=== PATIENT | male | born 1985 | race Caucasian/White ===

== ENCOUNTER 2021-11-19 14:18 | Emergency (ER) | payer MEDICAID, SELFPAY ==
[2021-11-19 14:19] VITALS: BP 133/102; PULSE 109; RESP 14; TEMP 36.4; O2SAT 97; BMI 37.8
--- NOTE | 2021-11-19 14:56 | EX.ED.DYSGE1 ---
HPI History of Present Illness Chief Complaint: Abscess Informant: patient Narrative Narrative: Patient states he has history of not uncommonly getting abscesses above his right-sided central incisor. He states it came in differently than all the others and always gives him problems. He has had 3 4 days of pressure. He can feel that he has an abscess moving up toward his nose. Normally he drains these himself with a needle under his lip. But he states he just cannot see this 1 to drain. He has no chest pain. No fevers chills. No headache. No nausea vomiting. He has no allergy to antibiotics. Nothing makes the symptoms better or worse other than chewing. No other complaints. He swallows normally. PFSH PFSH Home Medications penicillin V potassium 500 mg tablet 500 mg PO 4X/DAY #40 tabs 11/19/21 [Rx Last Taken Unknown] Allergy/AdvReac Type Severity Reaction Status Date / Time bee venom protein (honey bee) Allergy Anaphylaxis Verified 11/19/21 14:21 shellfish derived Allergy Vomiting Verified 11/19/21 14:21 Social History Smoking Status: Never smoker ROS ROS ED Constitutional Constitutional ED: Denies chills or fever(s) Eyes Eyes: Denies change in vision ENT ENT ED: Reports other Details: See history of present illness peer ; Denies sore throat Cardiovascular Cardiovascular: Denies chest pain Respiratory/Chest Respiratory/Chest: Denies cough or dyspnea Gastrointestinal Gastrointestinal: Denies nausea or vomiting Musculoskeletal Musculoskeletal: Denies neck pain Integumentary Reports abscess and other Details: Abscess above tooth. No others. EXAM Physical Exam Const Vital Signs: 11/19/21 14:19 Temperature 97.6 F L Temperature Source Temporal Pulse Rate 109 H Respiratory Rate 14 Blood Pressure 133/102 H Blood Pressure Mean 112 Pulse Ox 97 Oxygen Delivery Method Room Air Positive well nourished and well developed General Appearance ED: well developed and NAD HEENT Reports moist mucous membranes HEENT Narrative: Base of the patient's nose looks erythematous but I do not see any abscess extending up into the nostril. There is a little fullness of the lip on the right side. Tooth is tender as described in history of present illness. There is also some fullness in the gum above this that looks like an abscess that is pointing. It is slightly fluctuant. Voice is normal. Eyes EOMs intact bilaterally Eyes Narrative: No sinus tenderness. Neck no lymphadenopathy, supple and no JVD Neck Narrative: No stridor. Resp normal respiratory effort Skin no rashes or lesions noted MDM MDM MDM Narrative Medical decision making narrative: Incision and drainage was done. Patient tolerated well. Mild bleeding. Antibiotics will be started. Reasons to return discussed. Procedures Other Procedures Procedure(s): Incision and drainage of dental abscess. We discussed risks benefits and options. Patient would prefer this drain. I used 2 sprays of Cetacaine to numb the area. An 18-gauge needle was used to incise the area. We initially got blood and a tiny amount of purulence. We numbed up a little bit more and widen the incision and got good drainage of purulent material. We were able to milk some more from above and the lip. Patient felt good relief of pressure. We will start him on antibiotics at this time. Discharge Plan Triage Chief Complaint: Abscess ED Provider: Gene Pelayo Dx/Rx/DC Orders Clinical Impression: Abscess, dental, Encounter for incision and drainage procedure Instructions: Dental Abscess, ED Abscess Incision And Drainage Prescriptions: New penicillin V potassium 500 mg tablet 500 mg PO 4X/DAY Qty: 40 0RF Primary Care Provider: Geronimo Silverman III Activity Restrictions/Additional Instructions: Your blood pressure is a little bit elevated today. Please follow-up with primary physician for recheck. Dental resource list is also attached. Please follow-up with dentist in the next week to 10 days. Disposition Disposition: Home, Self Care
[2021-11-19] MEDS: Penicillin Vk 250 MG Tablet 500 MG PO (15:10)
== END 2021-11-19 15:14 | disposition home or self-care (01) ==
PROVIDERS: Emergency Provider Emergency Medicine; PCP Family Medicine; Visit Provider Emergency Medicine
DX: K04.7 Periapical abscess without sinus (principal)
CPT/HCPCS: 41800; 99282

== ENCOUNTER 2022-09-10 10:00 | Outpatient (RCR) | payer MEDICAID, SELFPAY ==
--- NOTE | 2022-08-02 16:59 | HP.PTEVAL_ITS ---
Patient's Visit Information GABBY VIVAR is a 36 year old M referred to Physical Therapy by Dr. Ranjit Trevizo DO with a diagnosis of Cervical and Right Shoulder Pain. Date of Evaluation: 08/02/22 Physical Therapist: Clau Da Silva DPT - Visit Plan Frequency: 2x /Week Duration: 4 Weeks Plan: Ultrasound, Manual STM and occipital release, ROM of cervical and UE, scapular strength/stabilization- decrease dural s/s. Posture, scapular retractions, supine chin tucks, wall wash flexion - Subjective Patient reports that he woke up Jun 01 and his right ring finger was numb and tingling- that has not gotten any better. He went to see MD who reports he has a curve in the cervical spine that goes the wrong way- he also has something else but can't remember. They put him on Meloxicam that is helping a little bit but he still has the N/T. The pain radiates from the base of his skull to the top of the shoulder and down the arm. He reports that pain isnt bad down the arm but the N/T is constant. Worst: 10 describes it as dull and achy. Best: 10. He has a hard time getting comfortable. Sleep: painful and he also has knee pain that wakes him up. PMHx/Meds: see list from Dr. Reyes. - Objective Posture: FH, RS- mild guarding of the right UE. Gait: slow juan- poor trunk rotation and arm swing Palpation: tender occiput down the UT to the AC joint. ROM: Cervical: pain with movement in all directions- WFL with the exception of right rotation diminished by 50%. Elbow/Wrist/Hand: WFL, Shoulder: AROM: Flexion: 160 degrees Abd: 160 degrees, IR: to belt, ER: 50 degrees. Strength: Elbow: Extn: 11 Flexion: 11.8 with pain, Shoulder: Flexion: 11.4 Extn: 11 Abd:12 Add: 16 IR: 20.5 ER: 12.8Grip: 80lbs- all with significant pain with testing - Special Tests C/S Radiculapathy - Left Spurlings: Positive C/S Radiculapathy - Right Spurlings: Positive C/S Radiculapathy - Left Cervical distraction: Positive C/S Radiculapathy - Right Cervical distraction: Positive R Shoulder Drop Sign - IS Test: Positive R Shoulder Empty Can - SS: Positive R Shoulder Belly Press - SupScap: Positive R Shoulder Neer - Impingement: Positive R Shoulder Ackerman Franky - Impingement: Positive - Balance/Special Test Scores Oswestry Neck Score: 31 - Goals Goal 1:: Patient will be I with HEP and progression Goal Time Frame: 4-6 Weeks Goal 2:: Patient will maintain proper posture t/o tx session to demo increased scap s/s Goal Time Frame: 4-6 Weeks Goal 3:: Patient will report no N/T in the UE for 1 week Goal Time Frame: 4-6 Weeks Goal 4:: Patient will report 80% improvement Goal Time Frame: 4-6 Weeks - Rehabilitation Potential Physical Therapy Diagnosis: Patient presents with hypomobility- he has decreased UE and cervical ROM, scapular strength/stabilization and muscular endurance leading to poor posture and increased pain with ADL's. - Anticipated Interventions Patient/Client Instruction: Educate patient on: Benefits of Fitness Program Therapeutic Exercise to Include: Strength training, Endurance training, Balance training, Coordination, Agility training, Body mechanics, Postural training, Flexibilty training, Gait and locomotor training, Neuromotor development, Dynamic Lumbar Stabilization, Scapular Strength/Stabilization For the Purpose of:: To improve muscle performance and motor function TENS: Yes Cryotherapy (ice pack, ice massage): Yes Thermo therapy (hot pack): Yes Ultrasound (thermal/non thermal): Yes Thank you for the opportunity to evaluate your patient. For Medicare and Medicare HMO plans, please review the plan of care and approve it. It will need to be FAXED BACK to us at [phone] for Medicare purposes. For Medicare only, by signing this I certify the plan of care. Please let me know if there are questions or concerns regarding this plan of care. Physician Signature: _Date:
--- NOTE | 2022-09-10 10:48 | HP.PTDCSUM ---
It has been my pleasure to treat GABBY VIVAR referred by Dr. Ranjit Trevizo DO, with the diagnosis of Cervical and Right Shoulder Pain for a total of 9 visit(s). Discharge Date: Please see the following information for a summary of their discharge status. Subjective: Patient reports that the shoulder pain has subsided to about a 3/10 which is better but the neck pain is still significant. He has a PCP MD (Kristy Kendrick) apt on the and will talk to them about an MRI to figure exactly what is going on with the tissue. He does feel that PT has helped. He feels that he can continue doing the exercises at home. Neck Pain Intensity (Out of 10): 5 right shoudler/UE Pain Intensity (Out of 10): 3 % Improvement: 40 Objective/Function: Posture: FH, RS- mild guarding of the right UE. Gait: slow juan- poor trunk rotation and arm swing Palpation: tender occiput down the UT to the AC joint. ROM: Cervical: pain with movement in all directions- WFL Elbow/Wrist/Hand: WFL, Shoulder: AROM: Flexion: 180 degrees Abd: 160 degrees, IR: to mid back, ER: 50 degrees. Strength: Elbow: Extn: 14 Flexion: 13.8 with pain, Shoulder: Flexion: 18.4 Extn: 12.2 Abd:10 Add: 10 IR: 10 ER: 12.8 Senior Policy Analyst: 80lbs- all with significant pain with testing. - Special Tests. C/S Radiculapathy - Left Spurlings: Positive. C/S Radiculapathy - Right Spurlings: Positive. C/S Radiculapathy - Left Cervical distraction: Positive. C/S Radiculapathy - Right Cervical distraction: Positive. R Shoulder Drop Sign - IS Test: Positive. R Shoulder Empty Can - SS: Positive. R Shoulder Belly Press - SupScap: Positive. R Shoulder Neer - Impingement: Positive. R Shoulder Ackerman Franky - Impingement: Positive Goal 1:: Patient will be I with HEP and progression Goal 2:: Patient will maintain proper posture t/o tx session to demo increased scap s/s Goal 3:: Patient will report no N/T in the UE for 1 week Goal 4:: Patient will report 80% improvement Plan: 09/10/22: Discharge- return to MD for further evaluation- reports he can perform HEP Indep with print out and bands. Ultrasound, Manual STM and occipital release, ROM of cervical and UE, scapular strength/stabilization- decrease dural s/s. If there are questions or concerns regarding this patient's physical therapy, please feel free to call me at [phone]. Thank you for the referral of this patient. Sincerely, Clau Da Silva, DAVIDT Balance/Gait/Functional tests - Balance/Special Test Scores Oswestry Neck Score: 29
--- NOTE | 2022-09-10 13:44 | HP.PTDCSUM ---
It has been my pleasure to treat GABBY VIVAR referred by Dr. Ranjit Trevizo DO, with the diagnosis of Cervical and Right Shoulder Pain for a total of 9 visit(s). Discharge Date: Please see the following information for a summary of their discharge status. Subjective: Patient reports that the shoulder pain has subsided to about a 3/10 which is better but the neck pain is still significant. He has a PCP MD (Kristy Kendrick) apt on the and will talk to them about an MRI to figure exactly what is going on with the tissue. He does feel that PT has helped. He feels that he can continue doing the exercises at home. Neck Pain Intensity (Out of 10): 5 right shoudler/UE Pain Intensity (Out of 10): 3 % Improvement: 20 Objective/Function: Posture: FH, RS- mild guarding of the right UE. Gait: slow juan- poor trunk rotation and arm swing Palpation: tender occiput down the UT to the AC joint. ROM: Cervical: pain with movement in all directions- WFL Elbow/Wrist/Hand: WFL, Shoulder: AROM: Flexion: 180 degrees Abd: 160 degrees, IR: to mid back, ER: 50 degrees. Strength: Elbow: Extn: 14 Flexion: 13.8 with pain, Shoulder: Flexion: 18.4 Extn: 12.2 Abd:10 Add: 10 IR: 10 ER: 12.8 Instructional Services Specialist: 80lbs- all with significant pain with testing. - Special Tests. C/S Radiculapathy - Left Spurlings: Positive. C/S Radiculapathy - Right Spurlings: Positive. C/S Radiculapathy - Left Cervical distraction: Positive. C/S Radiculapathy - Right Cervical distraction: Positive. R Shoulder Drop Sign - IS Test: Positive. R Shoulder Empty Can - SS: Positive. R Shoulder Belly Press - SupScap: Positive. R Shoulder Neer - Impingement: Positive. R Shoulder Ackerman Franky - Impingement: Positive Goal 1:: Patient will be I with HEP and progression Goal 2:: Patient will maintain proper posture t/o tx session to demo increased scap s/s Goal 3:: Patient will report no N/T in the UE for 1 week Goal 4:: Patient will report 80% improvement Plan: 09/10/22: Discharge- return to MD for further evaluation- reports he can perform HEP Indep with print out and bands. Ultrasound, Manual STM and occipital release, ROM of cervical and UE, scapular strength/stabilization- decrease dural s/s. * Pt called back after re-evaluation and changed % better from 40% to 20% to more accurately reflect how much better he feels PT made him- corrected in chart- ELR* If there are questions or concerns regarding this patient's physical therapy, please feel free to call me at [phone]. Thank you for the referral of this patient. Sincerely, Clau Da Silva, DPT Balance/Gait/Functional tests - Balance/Special Test Scores Oswestry Neck Score: 29
== END 2022-09-10 13:37 | disposition home or self-care (01) ==
LOC: PT 10:00
PROVIDERS: Referring Provider Orthopaedic Surgery; Visit Provider Orthopaedic Surgery
DX: M62.838 Other muscle spasm (principal); M19.011 Primary osteoarthritis, right shoulder
CPT/HCPCS: 97035; 97110; 97140; 97162; 97164

== ENCOUNTER → 2022-11-29 | Outpatient (CLI) | payer MEDICAID, SELFPAY ==
--- NOTE | 2022-11-29 12:01 | MRI_ITS ---
STUDY: MRI CERVICAL SPINE WITHOUT CONTRAST REASON FOR EXAM: Male, 37 years old. neck pain,shoulder weakness TECHNIQUE: Standardized fat and water weighted pulse sequences were obtained in the sagittal and axial planes. COMPARISON: None FINDINGS: Normal foramen magnum and brainstem-cervical cord junction. Normal craniovertebral junction. Normal anterior atlantoaxial articulation. Normal odontoid process. Straightening of normal lordotic curvature. Normal vertebral bodies and posterior osseous elements. C2-3: Normal endplates. Normal disc height, signal and morphology. Normal central canal and intervertebral neural foramina. C3-4: Normal endplates. Normal disc height, signal and morphology. Normal central canal and intervertebral neural foramina. C4-5: Normal endplates. Normal disc height, signal and morphology. Normal central canal and intervertebral neural foramina. C5-6: Normal endplates. Normal disc height, signal and morphology. Normal central canal and intervertebral neural foramina. C6-7: Normal endplates. Normal disc height, signal and mild bulging of the disc with small broad-based right posterolateral/foraminal disc protrusion. Mild narrowing of the central canal.. Severe right neural foraminal stenosis secondary to disc and bony hypertrophy C7-T1: Normal endplates. Normal disc height, signal and morphology. Normal central canal and intervertebral neural foramina. Normal cervical cord. Normal visualized soft tissue structures. MRI/Spine Cervical (Routine) IMPRESSION: No evidence for acute fracture or other significant bony pathology. Mild bulging of the disc at C6-7 with right posterolateral/foraminal disc protrusion creating severe right neural foraminal stenosis Electronically Signed: Cayetano Langston MD at 20:48 EDT Reading Location ID and State: [facility] / [place] , Service support ,
--- NOTE | 2022-11-29 12:01 | MRI_ITS ---
STUDY: MRI RIGHT SHOULDER REASON FOR EXAM: Male, 37 years old. shoulder pain,weakness TECHNIQUE: Standardized fat and water weighted pulse sequences were obtained in all 3 orthogonal planes. COMPARISON: Shoulder x-ray dated July 25, 2022 FINDINGS: There is mild supraspinatus tendinosis with tendon thickening, but without a demonstrated tendon tear. Normal infraspinatus tendon. Normal subscapularis tendon. Normal teres minor tendon. Normal supraspinatus muscle. Normal infraspinatus muscle. Normal subscapularis muscle. Normal teres minor muscle. Normal humeral head and visualized proximal humerus. Normal biceps labral complex. Normal intracapsular long biceps tendon. A small to moderate-sized linear tear is present in the anterior superior aspect of the glenoid labrum, without a demonstrated propagation posteriorly. A small oblique tear is also present in the posterior inferior aspect of the glenoid labrum without detachment or para labral cyst. Unremarkable remaining aspects of the labrum. Slight posterior subluxation of the humeral head in relation to the glenoid likely related to the torn labral tissue in the same region versus capsular laxity. Normal capsulo- ligamentous complex. Normal rotator interval. Normal acromioclavicular articulation. There is a Type II morphology (curved), with a neutral orientation. There is no subacromial-subdeltoid bursal fluid. Normal visualized coracohumeral and coracoacromial ligaments. Normal quadrilateral space. Normal axillary space. Normal deltoid muscle. Normal trapezius muscle. MRI/Upper Ext Joint Only(Routine) IMPRESSION: 1. A small to moderate-sized linear tear is present in the anterior superior aspect of the glenoid labrum, without a demonstrated propagation posteriorly. A small oblique tear is also present in the posterior inferior aspect of the glenoid labrum without detachment or para labral cyst. Unremarkable remaining aspects of the labrum. Slight posterior subluxation of the humeral head in relation to the glenoid likely related to the torn labral tissue in the same region versus capsular laxity. Mild supraspinatus tendinosis Electronically Signed: Ananth Arrieta MD at 12:23 EDT ,
== END | disposition home or self-care (01) ==
PROVIDERS: Referring Provider Orthopaedic Surgery; Visit Provider Orthopaedic Surgery
DX: M54.12 Radiculopathy, cervical region (principal)
CPT/HCPCS: 72141; 73221

== ENCOUNTER 2022-12-10 20:22 | Emergency (ER) | payer MEDICAID, SELFPAY ==
[2022-12-10 20:22] VITALS: BP 172/107; PULSE 104; RESP 17; TEMP 36.8; O2SAT 98; BMI 41.9
[2022-12-10] MEDS: Penicillin Vk 250 MG Tablet 500 MG PO (22:07)
[2022-12-10 22:10] VITALS: BP 156/90; PULSE 95; RESP 18
--- NOTE | 2022-12-10 23:40 | ED.VIS.DENTA ---
HPI History of Present Illness Chief Complaint: Dental Informant: patient Onset/Context/Timing Onset: Days Context: Gradual Onset Timing: Continuous Quality: Sharp Location: Right lower molar Worsened by: Chewing Relieved by: - (Drinking water) Associated Symptoms Assocated Symptom - Dental: fever and hot sensitivity; Negative for jaw swelling, face swelling or cold sensitivity Narrative Narrative: Patient presents with right-sided dental pain that has been getting worse over the past few days. Patient states one of his right upper and lower molars broke off. Patient states his pain is sharp. Patient states pain is worse over the lower molars. Patient states the pain is worse with chewing. Patient states it is better with drinking water. Patient admits to a low-grade fever. Patient also admits to some hot sensitivity. Patient denies any jaw or facial swelling. [facility] Medical History (Updated 12/10/22 @ 23:[address] Eliud Bhandari DO) Cervical pain Home Medications cyclobenzaprine 5 mg tablet 5 mg PO TID PRN 07/25/22 [History Last Taken Unknown] duloxetine 60 mg capsule,delayed release 60 mg PO DAILY 07/25/22 [History Last Taken Unknown] glimepiride 4 mg tablet 4 mg PO BID 07/25/22 [History Last Taken Unknown] insulin glargine 100 unit/mL subcutaneous solution (Lantus U-100 Insulin) 15 unit subcut BID 07/25/22 [History Last Taken Unknown] meloxicam 15 mg tablet 15 mg PO DAILY #30 tabs 07/25/22 [Rx Last Taken Unknown] trazodone 50 mg tablet 50 mg PO QHS PRN 07/25/22 [History Last Taken Unknown] topiramate 25 mg tablet 25 mg PO 11/05/22 [History Last Taken Unknown] penicillin V potassium 500 mg tablet 500 mg PO 4X/DAY #40 tabs 12/10/22 [Rx Last Taken Unknown] Allergy/AdvReac Type Severity Reaction Status Date / Time bee venom protein (honey bee) Allergy Anaphylaxis Verified 07/25/22 14:03 shellfish derived Allergy Vomiting Verified 07/25/22 14:03 no surgical history Social History Smoking Status: Never smoker ROS ROS ED Constitutional Constitutional ED: Reports fever(s); Denies chills Eyes Eyes: Denies blurry vision or change in vision ENT ENT ED: Denies rhinorrhea or sore throat Cardiovascular Cardiovascular: Denies chest pain or palpitations Respiratory/Chest Respiratory/Chest: Denies cough or dyspnea Gastrointestinal Gastrointestinal: Reports nausea; Denies vomiting Genitourinary Genitourinary ED: Denies dysuria or hematuria Musculoskeletal Musculoskeletal: Reports back pain and neck pain Integumentary Denies abscess or rash Neurologic Neurologic: Reports headache(s); Denies weakness Allergic/Immunologic Allergic/Immunologic ED: Denies mouth swelling or urticaria EXAM Physical Exam Const Vital Signs: 12/10/22 20:22 12/10/22 22:10 Temperature 98.3 F Temperature Source Temporal Pulse Rate 104 H 95 Respiratory Rate 17 18 Blood Pressure 172/107 H 156/90 H Blood Pressure Mean 128 Pulse Ox 98 Oxygen Delivery Method Room Air Positive well nourished and well developed General Appearance ED: well developed HEENT Reports moist mucous membranes Mouth ED: Yes oral and palatal mucosa normal, Yes lips normal and Yes tongue normal Mouth: oral and palatal mucosa normal, lips normal and tongue normal Teeth and Gingiva: caries and gingiva abnormal Positive for gingival edema Throat: posterior oropharynx normal Neck supple and no JVD General: Negative for anterior neck swelling, tenderness or submandibular swelling Neuro oriented x3, CN's II-XII intact bilaterally and no sensory deficits noted Sensorium / Orientation: alert Motor Exam: strength 5/5 throughout Psych mental status grossly normal Skin no rashes or lesions noted MDM MDM MDM Narrative Medical decision making narrative: Patient was advised of his findings. Patient was given a dose of Pen-Vee K here. Patient was given prescription for Pen-Vee K. Patient was instructed to take Tylenol or ibuprofen as needed for pain. Patient was instructed to follow-up with his dentist in 5 to 7 days. Patient understood and was agreeable with the plan. All questions were answered. Discharge Plan Triage Chief Complaint: Dental ED Provider: Eliud Bhandari Dx/Rx/DC Orders Clinical Impression: Infected dental caries Instructions: ED Dental Cavity Prescriptions: New penicillin V potassium 500 mg tablet 500 mg PO 4X/DAY Qty: 40 0RF No Action glimepiride 4 mg tablet 4 mg PO BID duloxetine 60 mg capsule,delayed release(DR/EC) 60 mg PO DAILY trazodone 50 mg tablet 50 mg PO QHS PRN cyclobenzaprine 5 mg tablet 5 mg PO TID PRN insulin glargine [Lantus U-100 Insulin] 100 unit/mL solution 15 unit subcut BID meloxicam 15 mg tablet 15 mg PO DAILY Qty: 30 1RF topiramate 25 mg tablet 25 mg PO Patient Comments: TAKE ONE TABLET BY MOUTH AT NIGHT Primary Care Provider: Kristy Kendrick Referrals: Kristy Kendrick [Primary Care Provider] - 5-7 Days Disposition Disposition: Home, Self Care Discharge Date/Time: 12/10/22 22:11
== END 2022-12-10 22:11 | disposition home or self-care (01) ==
PROVIDERS: Emergency Provider Emergency Medicine; Visit Provider Emergency Medicine
DX: K02.9 Dental caries, unspecified (principal)
CPT/HCPCS: 99283

== ENCOUNTER 2022-12-14 08:58 | Emergency (ER) | payer MEDICAID, SELFPAY ==
[2022-12-14 08:59] VITALS: BP 126/75; PULSE 88; RESP 14; TEMP 37.2; O2SAT 100; BMI 43.6
[2022-12-14] MEDS: oxyCODONE 5 MG Tablet PO (10:29)
[2022-12-14] MEDS: Clindamycin HCl 150 MG Capsule 450 MG PO (10:29)
--- NOTE | 2022-12-14 11:25 | ED.VIS.DENTA ---
HPI History of Present Illness Chief Complaint: Dental Narrative Narrative: Patient returning for dental pain. He was seen a couple of days ago and put on penicillin VK for dental pain. Apparently he injured his right upper and lower premolars. States not improving. He states he tried to follow-up with a dentist but they state stated to them that they would not see him until this infection is cleared up. Patient states the pain is getting worse. He states he does not believe the antibiotic is working and he needs some relief. Difficulty swallowing or breathing. No fevers. PFSH PFSH Medical History Cervical pain Home Medications cyclobenzaprine 5 mg tablet 5 mg PO TID PRN 07/25/22 [History Last Taken Unknown] duloxetine 60 mg capsule,delayed release 60 mg PO DAILY 07/25/22 [History Last Taken Unknown] glimepiride 4 mg tablet 4 mg PO BID 07/25/22 [History Last Taken Unknown] insulin glargine 100 unit/mL subcutaneous solution (Lantus U-100 Insulin) 15 unit subcut BID 07/25/22 [History Last Taken Unknown] meloxicam 15 mg tablet 15 mg PO DAILY #30 tabs 07/25/22 [Rx Last Taken Unknown] trazodone 50 mg tablet 50 mg PO QHS PRN 07/25/22 [History Last Taken Unknown] topiramate 25 mg tablet 25 mg PO 11/05/22 [History Last Taken Unknown] penicillin V potassium 500 mg tablet 500 mg PO 4X/DAY #40 tabs 12/10/22 [Rx Last Taken Unknown] clindamycin HCl 150 mg capsule 450 mg (3 x 150 mg) PO Q6H 10 days #120 caps 12/14/22 [Rx Last Taken Unknown] oxycodone 5 mg capsule 5 mg PO Q6H PRN pain 3 days #12 caps 12/14/22 [Rx Last Taken Unknown] Allergy/AdvReac Type Severity Reaction Status Date / Time bee venom protein (honey bee) Allergy Anaphylaxis Verified 12/14/22 08:58 shellfish derived Allergy Vomiting Verified 12/14/22 08:58 Social History Smoking Status: Never smoker ROS ROS ED Constitutional Constitutional ED: Denies chills, fever(s) or sweats Eyes Eyes: Denies blurry vision or change in vision ENT ENT ED: Reports other Details: Dental pain ; Denies ear pain or sore throat Cardiovascular Cardiovascular: Denies chest pain, palpitations or racing heartbeat Respiratory/Chest Respiratory/Chest: Denies cough, dyspnea or sputum Gastrointestinal Gastrointestinal: Denies abdominal pain, constipation, diarrhea, nausea or vomiting Genitourinary Genitourinary ED: Denies dysuria, hematuria or urinary frequency Musculoskeletal Musculoskeletal: Denies arthralgias, myalgias or neck pain Integumentary Denies abscess, Abrasions or rash Neurologic Neurologic: Denies headache(s), paresthesias or weakness Psychiatric Psychiatric: Denies anxiety, depression, suicidal ideation or suicidal thoughts Endocrine Endocrinology: Denies polydipsia or polyuria EXAM Physical Exam Const Vital Signs: 12/14/22 08:59 Temperature 99 F Temperature Source Temporal Pulse Rate 88 Respiratory Rate 14 Blood Pressure 126/75 H Blood Pressure Mean 92 Pulse Ox 100 Oxygen Delivery Method Room Air Positive well nourished General Appearance ED: NAD HEENT HEENT Narrative: Right upper and lower premolar dental caries. There is an opening in the bottom right premolar which is not draining. The gingiva are slightly edematous but there is no abscess. Percussion tenderness is present. No sublingual edema. No submandibular edema. Mouth ED: Yes lips normal, Yes tongue normal and Yes salivary gland normal Mouth: lips normal, tongue normal and salivary gland normal Eyes PERRL Neck no lymphadenopathy Resp normal respiratory effort and no retractions Cardio regular rate and regular rhythm Neuro oriented x3 and CN's II-XII intact bilaterally Sensorium / Orientation: alert Motor Exam: strength 5/5 throughout Psych mental status grossly normal Skin no rashes or lesions noted MDM MDM MDM Narrative Medical decision making narrative: Patient presenting with dental pain. He states that the penicillin VK is not working. He was given a oxycodone here in the ED. We discussed switching his antibiotics to clindamycin to see if this would help. He does have a dentist but he will be seen by them until his infection clears up apparently. I will give him a prescription for clindamycin and oxycodone for home. Impression: 1. Dental pain 2. Dental caries Discharge Plan Triage Chief Complaint: Dental ED Provider: Wilfredo Wilkins Dx/Rx/DC Orders Instructions: ED Dental Cavity Prescriptions: New clindamycin HCl 150 mg capsule 450 mg PO Q6H 10 Days Qty: 120 0RF oxycodone 5 mg capsule 5 mg PO Q6H PRN (Reason: pain) 3 Days Qty: 12 0RF No Action glimepiride 4 mg tablet 4 mg PO BID duloxetine 60 mg capsule,delayed release(DR/EC) 60 mg PO DAILY trazodone 50 mg tablet 50 mg PO QHS PRN cyclobenzaprine 5 mg tablet 5 mg PO TID PRN insulin glargine [Lantus U-100 Insulin] 100 unit/mL solution 15 unit subcut BID meloxicam 15 mg tablet 15 mg PO DAILY Qty: 30 1RF topiramate 25 mg tablet 25 mg PO Patient Comments: TAKE ONE TABLET BY MOUTH AT NIGHT penicillin V potassium 500 mg tablet 500 mg PO 4X/DAY Qty: 40 0RF Primary Care Provider: Kristy Kendrick Referrals: Kristy Kendrick [Primary Care Provider] - Disposition Disposition: Home, Self Care Discharge Date/Time: 12/14/22 10:52
== END 2022-12-14 10:52 | disposition home or self-care (01) ==
PROVIDERS: Emergency Provider Student in an Organized Health Care Education/Training Program; Visit Provider Student in an Organized Health Care Education/Training Program
DX: K02.9 Dental caries, unspecified (principal); K08.89 Other specified disorders of teeth and supporting structures
CPT/HCPCS: 99283

== ENCOUNTER 2023-09-02 11:58 | Outpatient (RCR) | payer MEDICAID, SELFPAY ==
--- NOTE | 2023-09-04 11:25 | HP.OTFCE_ITS ---
Task Lift Floor (Occasional 1-33% of Day): 25# Floor (Frequent 34-66% of Day): 12# Floor (Constant 67-100% of Day): NA Floor PDL: Light Knee (Occasional 1-33% of Day): 30# Knee (Frequent 34-66% of Day): 15# Knee (Constant 67-100% of Day): NA Knee PDL: Light Waist (Occasional 1-33% of Day): 25# Waist (Frequent 34-66% of Day): 12# Waist (Constant 67-100% of Day): NA Waist PDL: Light Shoulder (Occasional 1-33% of Day): 25# Shoulder (Frequent 34-66% of Day): 12# Shoulder (Constant 67-100% of Day): NA Shoulder PDL: Light Overhead (Occasional 1-33% of Day): NA Overhead (Frequent 34-66% of Day): NA Overhead (Constant 67-100% of Day): NA Overhead PDL: No Ability Comments: Light Physical Demand Level for lifting at Floor, Knee, Waist and shoulder levels. No ability over head lift Pain limiting factor for lifting, and due to increase in pain pt can not lift on a constant ability Work Activity/Posture Bending: Occasional Ability (1-33% of day) Comments: with use of external support Squatting: No Ablility (0% of day) Kneeling: No Ablility (0% of day) Reaching out: Frequent Ability (34-66% of day) Reaching up: Occasional Ability (1-33% of day) Comments: with limited ROM Sitting: Frequent Ability (34-66% of day) Walking: Occasional Ability (1-33% of day) Standing: Occasional Ability (1-33% of day) Reference Reference: Duration Sedentary Sedentary Light Light Light Medium Medium Medium Heavy Very Heavy Heavy Occasional (0-33% of day) Frequent (34-66% of day) Constant (67-100% of day) 10 # Negligible Negligible 15 # 8 # Negligible 20 # 10# Negli. 35 # 18 # 7 # 50 # 25 # 10 # 75 # 100 # >100 # 38 # 50 # >50 # 15 # 20 # >20 # Patient Information Height: 1.75 m Weight:: 129.274 kg Hand Dominance: right Medical History Medical History Including Restrictions: pt states he had noticed back and neck pain in 2013. (but did not seek medical care because he was caring for his) dx in spinal stenosis from chiropractor in . pt states chiropractor he goes for monthly treatments from him. pt states he was Dx with Back pain Dr. Pineda in late [address] Pineda did do MRI and sent pt to Pain mtg. Pt states Dr. Hairston started to to injections at the cervical spine ( has had 2 injections) every three months, is getting some relief from the treatments. Pt states he does wear a knee brace on his right leg due to knee injury in remote past. States knee rosa on him. pt states he did have some Physical therapy for his shoulder but due to limited gains was referred back to Dr. Pineda and this is when he ordered MRI. pt does not exercise on a regular basis. pt states he has not been put on any lifting restrictions at this time. pt did have difficulty recall the years and dates of services above information may vary from records. Diagnoses Diagnoses: Back pain Depression dx in adolescents ( did have treatment) Manic depression Dx. ( seen weekly counselor) cervical stenosis fear of driving ( vehophobia/ amaxophobia) bulging disc on C6-C7 Dx labral cartilage tears in right shoulder Remote knee injury ( wears right knee brace all the time) DMII dx in 2020 somewhat controlled with medication Symptoms Symptoms: fear of driving (pathological fear) Pain neck back right leg pain right arm pain tired weakness on right side Pain Pain: Pt takes duloxetine ,diclofenac , Cyclobenzaprine (has been out for about a week of this medication) to help his pain symptoms. pt states he takes medication daily. Pt states pain level at about a 6/10. pt states reclined pron pain will go to 4/10 pt states pain currently is 7/10 Fer pain score 30/78 Work History Work History: pt states he has not worked in 10 years to stay home and care for his mother. Pt states his mother past away about two years ago. He has not retained a job since her . States he is struggling with depression and physical pain. pt states his mother was heavy and he did have to use his physical strength to help care for her. 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 Pt states he knows he physically would not be able to handle another job with this physical demands. Behavioral Behavioral: pt flat affect and cooperative throughout session. ADLS ADLS: Pt states he lives alone in apartment with elevator access. pt has laundry on his floor. pt has tub shower combination with shower bench ( been using last few years) due to his limited standing tolerance. pt states he can dress/ light cooking/ laundry/ pt does cleaning but needs to take a break. pt does shopping but needs to sit for breaks. pt is VIANEY with pain tolerance. Physical Examination ROM: pt demo with limited right shoulder flexion 110* left 150* pt demo with limited right shoulder abduction 90* left 165* pt demo with rolled shoulder posture and neck forward position. right knee limited from remote injury right knee flexion at 70* left WNL all other ROM WNL Strength: Fet2 peak force testing in lbs. shoulder flexion right 5# with pain left 17.5# shoulder extension right 17# left 26.6# biceps right 26# left 20.6# triceps right 13.4# left 21.0# hip flexion right 28.2# left 38.9# Quadriceps right 22.9# left 25# Hamstrings right 26# left 20# Right [employer] Supervisor Strength Average: 24.00 Right [employer] Department Supervisor Strength Percentile: <.9% Left [employer]ing Department Supervisor Strength Average: 58.33 Left Silvering Department Supervisor Strength Percentile: <.3% Right Lateral Pinch Average: 10.66 Right Lateral Pinch Percentile: <10% Left Lateral Pinch Average: 18.66 Left Lateral Pinch Percentile: 25% Right Tripod Pinch Average: 15.33 Right Tripod Pinch Percentile: 10% Left Tripod Pinch Average: 16.66 Left Tripod Pinch Percentile: 25% Sensation: Denies issues with sensation in bilateral hands numbness in legs/feet pt states waiting on dx of ( Diabetic neuropathy) Fine Motor: 9 hole peg test for fine motor skills right 28.52 sec. pt a 0% for his age left 24.87 sec. pt at 10% for his age Balance: functional balance 8 Interpretation: A score of 6 or less indicates a significant increased risk for falls. A score between 6-10 inches indicates a moderate risk for fall References: 1. SALOMÓN Gutierrez, Marianna RODGERS, Terri J, Swathi S. Functional reach: A new clinical measure of balance. J Gerontol. 1990; 45:M192. 2. SALOMÓN Gutierrez, et al: Functional reach: Predictive validity in a sample of elderly male veterans. J Gerontol. 1992; 47:M93. 3. JIM Bill, et al: Functional reach and single leg stance in patients with peripheral vestibular disorders. J Vestib Res. 1996; 6:343. 4. ANA MARIA Cabral, et al: Does functional reach improve with rehabilitation. Arch Phys Med Rehab. 1993; 74:796. Non Material Handling Activities Bending: pt demo the ability to bend forward 3/10x 7/10 pain attempted 10/10 bending forward was able to perform 6/10 pain in back and neck 8/10 heart rate 122 pt can bend forward on occasional ability with external support Squatting: no ability Kneeling: no ability Reaching out/up: pt demo the ability for reaching up/ out 3/3x with bilateral UE. stated pain in right shoulder 7/10 pt demo the ability to reach out 10/10x ( heart rate 125) pt demo the ability to reach up 10/10x left 9/10 right (heart rate 110) pt demo the ability to reach out 10/10 rapidly pt demo the ability to reach up 2/10 right left 10/10 rapidly pt reports 8/10 pt limited with reaching up due to pain.pt can reach up on occasional ability. pt can reach out on frequent ability. Walking: pt demo the ability to ambulate 4 min and 37 sec with an antalgic step pattern with right leg drag. pt is wearing right knee brace. Standing: pt demo with standing for 3 min shifting body weight. therapist noted more weight on left vs right. pt can stand on occasional ability Sitting: pt demo the ability to sit for 60 min with shifting body weight. pt can sit on a frequent ability Climbing Stairs: unable Dynamic Occasional Lifting Capacity Floor Lift: pt demo the ability to lift 10# (+box at 15#) for maximal lift ability at 25#. pt demo poor lifting mechanics and reported pain with lift at 8/10 heart rate 122 Knee Lift: pt demo the ability to lift 15# (+box at 15#) for maximal lift ability at 30#. pt demo poor lifting mechanics and reported pain with lift at 8/10 heart rate 122 Waist Lift: pt demo the ability to lift 10# (+box at 15#) for maximal lift ability at 25#. pt demo poor lifting mechanics and reported pain with lift at 8/10 heart rate 122 Shoulder Lift: pt demo the ability to lift 10# (+box at 15#) for maximal lift ability at 25#. pt demo poor lifting mechanics and reported pain with lift at 8/10 heart rate 122 Overhead Lift: unable Carrying: pt attempted to carry 10# in box (15#) but once he turned on right knee he felt his knee buckle pain neck 9/10 low back 8/10 right knee 8/10 Comments: pt heart rate varied throughout assessment at resting at 106 and maximal at 122 pain limiting pt with functional lift and mobility
--- NOTE | 2023-09-04 11:25 | HP.OTFCE.D ---
FCE D/C Summary Discharge text: GABBY VIVAR was seen for a one time visit for an FCE on 09/02/23 and is discharged.
== END 2023-09-02 19:00 | disposition home or self-care (01) ==
LOC: OT 11:58
PROVIDERS: Referring Provider Anesthesiology Pain Medicine; Visit Provider Anesthesiology Pain Medicine
DX: M54.9 Dorsalgia, unspecified (principal)
CPT/HCPCS: 97750

== ENCOUNTER → 2023-12-26 | Outpatient (CLI) | payer MEDICAID, SELFPAY ==
[2023-12-26 12:18] LABS: Hematocrit 52.7 % (40-54); Hemoglobin 17.6 g/dL (13.0-16.5); Mean Corp Hgb Conc 33.4 g/dL (32-36); Mean Corpuscular Hgb 29.3 pg (27.0-32.0); Mean Corpuscular Volume 87.7 fL (80-94); Mean Platelet Vol. 9.3 fl (6.2-12.0); Platelet Count 322 K/mm3 (150-450); RBC Distribution Width CV 12.7 % (11.6-14.6); RBC Distribution Width SD 40.7 fl (35.1-43.9); Red Blood Count 6.01 M/mm3 (4.6-6.2)
[2023-12-26 17:34] LABS: ALB/GLOB Ratio 0.8 RATIO (0.9-2.4); AST(SGOT) 19 U/L (15-37); Alanine Aminotransfer ALT/SGPT 26 U/L (16-61); Albumin, Serum 3.4 g/dL (3.2-5.0); Alkaline Phosphatase 67 U/L (45-117); Anion Gap 9 (5-15); BUN 8 mg/dL (7-18); BUN/Creat Ratio 11.2 RATIO (10-20); Calcium,Total 9.1 mg/dL (8.5-10.1); Chloride 107 mmol/L (98-107); Creatinine, Serum 0.72 mg/dL (0.70-1.30); EST Glomerular Filtration Rate 131 mL/min (>60); Est Glom Filt Rate - Afr Amer 159 mL/min (>60); Globulin 4.4 g/dL (2.2-4.2); Glucose 148 mg/dL (74-106); Potassium 3.7 mmol/L (3.5-5.1); Protein, Total 7.8 g/dL (6.4-8.2); Sodium Level 137 mmol/L (136-145)
== END | disposition home or self-care (01) ==
PROVIDERS: PCP Nurse Practitioner Family; Referring Provider Nurse Practitioner Family; Visit Provider Nurse Practitioner Family
DX: E11.9 Type 2 diabetes mellitus without complications (principal)
CPT/HCPCS: 36415; 80053; 82043; 85027

== ENCOUNTER → 2024-07-07 | Outpatient (CLI) | payer MEDICAID, SELFPAY ==
[2024-07-07 13:06] LABS: Absolute Lymphocyte Count 3.33 X10^3/uL (0.83-4.51); Absolute Neutrophil Count 6.3 X10^3/uL (2.0-7.7); Basophil# 0.11 X10^3/uL; Eosinophil# 0.24 X10^3/uL; Eosinophils% 2.2 % (0-5); Hematocrit 50.5 % (40-54); Hemoglobin 17.7 g/dL (13.0-16.5); Lymphocyte # 3.33 X10^3/ul (0.83-4.51); Lymphocyte % 30.7 % (19-41); Mean Corpuscular Hgb 30.5 pg (27.0-32.0); Mean Corpuscular Volume 87.1 fL (80-94); Mean Platelet Vol. 9.1 fl (6.2-12.0); Monocyte# 0.84 X10^3/uL; Monocyte% 7.7 % (0-10); NRBC Flagged by Analyzer 0 % (0-5); Neutrophil # 6.26 X10^3/uL (2.7-7.7); Neutrophil % 57.8 % (47-70); Platelet Count 364 K/mm3 (150-450); RBC Distribution Width CV 12.4 % (11.6-14.6); RBC Distribution Width SD 39.5 fl (35.1-43.9); White Blood Count 10.8 K/mm3 (4.4-11.0)
[2024-07-07 14:01] LABS: ALB/GLOB Ratio 0.8 RATIO (0.9-2.4); AST(SGOT) 15 U/L (15-37); Alanine Aminotransfer ALT/SGPT 35 U/L (16-61); Albumin, Serum 3.2 g/dL (3.2-5.0); Alkaline Phosphatase 91 U/L (45-117); Anion Gap 7 (5-15); BUN 9 mg/dL (7-18); BUN/Creat Ratio 11.8 RATIO (10-20); Calcium,Total 8.8 mg/dL (8.5-10.1); Chloride 106 mmol/L (98-107); Cholesterol 190 mg/dL (200); Creatinine, Serum 0.76 mg/dL (0.70-1.30); EST Glomerular Filtration Rate 122 mL/min (>60); Est Glom Filt Rate - Afr Amer 147 mL/min (>60); Globulin 4.2 g/dL (2.2-4.2); Glucose 175 mg/dL (74-106); High Density Lipoprotein 39 mg/dL; Potassium 3.7 mmol/L (3.5-5.1); Protein, Total 7.4 g/dL (6.4-8.2); Sodium Level 137 mmol/L (136-145); Triglycerides 334 mg/dL; Very Low Density Lipoprotein 67 mg/dL (5-40)
[2024-07-07 14:37] LABS: Hemoglobin A1c 8.8 % (3.8-5.6)
== END | disposition home or self-care (01) ==
LOC: VSLAB 12:03
PROVIDERS: PCP Nurse Practitioner Family; Visit Provider Nurse Practitioner Family
DX: E11.9 Type 2 diabetes mellitus without complications (principal); G43.909 Migraine, unspecified, not intractable, without status migrainosus
CPT/HCPCS: 36415; 80053; 80061; 83036; 84443; 85025

== ENCOUNTER → 2024-10-06 | Outpatient (CLI) | payer MEDICAID, SELFPAY ==
[2024-10-06 16:54] LABS: Absolute Lymphocyte Count 2.09 X10^3/uL (0.83-4.51); Absolute Neutrophil Count 7.4 X10^3/uL (2.0-7.7); Basophil# 0.08 X10^3/uL; Basophil% 0.8 % (0-1); Eosinophil# 0.15 X10^3/uL; Eosinophils% 1.4 % (0-5); Hematocrit 52.8 % (40-54); Hemoglobin 17.3 g/dL (13.0-16.5); Lymphocyte # 2.09 X10^3/ul (0.83-4.51); Mean Corp Hgb Conc 32.8 g/dL (32-36); Mean Corpuscular Volume 91.7 fL (80-94); Mean Platelet Vol. 9.3 fl (6.2-12.0); Monocyte# 0.74 X10^3/uL; Monocyte% 7.1 % (0-10); NRBC Flagged by Analyzer 0 % (0-5); Neutrophil # 7.35 X10^3/uL (2.7-7.7); Neutrophil % 70.4 % (47-70); Platelet Count 319 K/mm3 (150-450); RBC Distribution Width CV 12.6 % (11.6-14.6); RBC Distribution Width SD 42.5 fl (35.1-43.9); Red Blood Count 5.76 M/mm3 (4.6-6.2); White Blood Count 10.4 K/mm3 (4.4-11.0)
[2024-10-06 18:43] LABS: ALB/GLOB Ratio 1.1 RATIO (0.9-2.4); AST(SGOT) 16 U/L (<=37); Alanine Aminotransfer ALT/SGPT 15 U/L (<=46); Albumin, Serum 3.9 g/dL (3.5-5.0); Alkaline Phosphatase 85 U/L (40-129); Anion Gap 14 (5-15); BUN 13 mg/dL (4-19); BUN/Creat Ratio 18.1 RATIO (10-20); Calcium,Total 9.2 mg/dL (7.6-11.0); Carbon Dioxide 17.4 mmol/L (21.0-32.0); Chloride 106 mmol/L (98-108); EST Glomerular Filtration Rate 122 (>60); Globulin 3.6 g/dL (2.2-4.2); Glucose 152 mg/dL (70-99); Potassium 4.5 mmol/L (3.3-5.1); Protein, Total 7.5 g/dL (5.9-8.4); Sodium Level 137 mmol/L (133-145); Total Bilirubin 0.62 mg/dL (0.00-1.30); Vitamin B12 263 pg/mL (180-914); Vitamin D,25 Hydroxy < 6.0 ng/mL (30-100)
== END | disposition home or self-care (01) ==
LOC: VSLAB 13:39
PROVIDERS: PCP Nurse Practitioner Family; Visit Provider Nurse Practitioner Family
DX: E11.42 Type 2 diabetes mellitus with diabetic polyneuropathy (principal)
CPT/HCPCS: 36415; 80053; 82043; 82306; 82607; 84443; 85025

== ENCOUNTER → 2025-01-06 | Outpatient (CLI) | payer MEDICAID, SELFPAY ==
[2025-01-06 11:38] LABS: Microalbumin,Random Urine 374.0 mg/L (<20 mg/L)
[2025-01-06 11:51] LABS: AST(SGOT) 16 U/L (<=37); Alanine Aminotransfer ALT/SGPT 16 U/L (<=46); Albumin, Serum 3.8 g/dL (3.5-5.0); Alkaline Phosphatase 70 U/L (40-129); Anion Gap 13 (5-15); BUN 9 mg/dL (4-19); BUN/Creat Ratio 12.3 RATIO (10-20); Calcium,Total 9.3 mg/dL (7.6-11.0); Carbon Dioxide 21.1 mmol/L (21.0-32.0); Chloride 102 mmol/L (98-108); Globulin 3.3 g/dL (2.2-4.2); Glucose 247 mg/dL (70-99); Potassium 3.9 mmol/L (3.3-5.1)
[2025-01-06 11:54] LABS: Vitamin D,25 Hydroxy 30.7 ng/mL (30-100)
== END | disposition home or self-care (01) ==
LOC: VSLAB 10:34
PROVIDERS: PCP Nurse Practitioner Family; Visit Provider Nurse Practitioner Family
DX: E55.9 Vitamin D deficiency, unspecified (principal); E11.9 Type 2 diabetes mellitus without complications
CPT/HCPCS: 36415; 80053; 82043; 82306

== ENCOUNTER → 2025-02-03 | Outpatient (CLI) | payer MEDICAID, SELFPAY ==
--- NOTE | 2025-02-03 11:08 | NEURO_ITS ---
NCS and/or EMG Patient Report Ordering Doctor: Melly Webb DATE OF SERVICE: 02/03/25 Alexis presents with complaints of numbness in both lower legs. He reports multiple sores on the legs, which he states is from his cat scratching him. Electrodiagnostic findings: Right peroneal motor nerve demonstrates normal dis good latency and amplitude with approximately 25% drop in conduction across the fibular head. Left peroneal motor nerve demonstrates normal distal latency, amplitude and conduction velocity. Tibial motor response within normal limits bilaterally. Normal tibial and peroneal F?waves. Absent left sural response. Prolonged left superficial peroneal latency. H reflex is prolonged bilaterally. Needle EMG testing was performed the lower limbs. All muscles tested showed no evidence of denervation with normal motor unit action potentials. Electrodiagnostic impression: This an abnormal study in the lower limbs 1. Electrodiagnostic findings suggestive of a mild motor and sensory polyneuropathy, likely secondary to diabetes. 2. No electrodiagnostic evidence is noted for lumbosacral radiculopathy Multi Select Codes Neurology Neurology Interp Codes: 25472-37 Musc test done w/n test comp (interp) (2) and 23309-47 Nrv cndj test 9-10 studies (interp)
== END | disposition home or self-care (01) ==
LOC: PSN 08:42
PROVIDERS: PCP Nurse Practitioner Family; Referring Provider Nurse Practitioner Family; Visit Provider Nurse Practitioner Family
DX: G62.9 Polyneuropathy, unspecified (principal)
CPT/HCPCS: 95886; 95911